=== PATIENT | female | born 1965 | race Asian ===

== ENCOUNTER → 2017-07-14 | Outpatient (CLI) | payer OTHER ==
[~2017-07-14] MED LIST: ALBU90OI; ALPR.5; AMIT25 PO; AMIT50 PO; BIOTIN1 MG PO; BUPRENORPHINE HC2 MG PO; BUPRENORPHINE HC2 MG SL; CLON.5 PO; CODACE30 PO; Cipro500 MG PO; DRON2.5; FLUO20; FOLI1 PO; Glimepiride4 MG; HYDACE10B PO; HYDMOR4 PO; IBUP600 PO; LISI5 PO; LORA1 PO; LOVA20 PO; Lisinopril2.5 MG; MAGCHL64ER PO; MELO7.5 PO; META800 PO; METF500 PO; METF500C; METF500C PO; MULVITA; NAPR500 PO; NITR100CA PO; Norco 10-325 T1 EACH PO; OMEP20ER PO; ONDA4 PO; ONDA4ODT MM; ONDA4ODT PO; OTREXUP 1010 MG/0.4 IM; OXYC10TA19; One Daily1 EAC3 PO; PANT20 PO; PROC5 PO; PROM25 PO; PROP10; Pantoprazole So40 MG; Prozac20 MG; Pyridium200 MG PO; RXCODACET PO; RXHYDMOR2 PO; RXOXYACE PO; TURMERIC500 MG PO; Ultram50 MG PO; Zofran Odt4 MG SL
== END | disposition home or self-care (01) ==
LOC: LAB SHORT 08:43 → LAB EV 08:43
DX: N39.0 Urinary tract infection, site not specified (principal)
CPT/HCPCS: 87077; 87086; 87186

== ENCOUNTER → 2017-09-04 | Outpatient (CLI) | payer OTHER | END | disposition home or self-care (01) | LOC: LAB EV 11:02 → LAB SHORT 11:02 | DX: N39.0 Urinary tract infection, site not specified (principal) | CPT/HCPCS: 87086 ==

== ENCOUNTER → 2017-11-18 | Outpatient (CLI) | payer OTHER | END | disposition home or self-care (01) | LOC: LAB EV 10:47 → LAB SHORT 10:47 | DX: N39.0 Urinary tract infection, site not specified (principal) | CPT/HCPCS: 87086 ==

== ENCOUNTER 2018-08-25 11:57 | Day surgery (SDC) | payer OTHER ==
[~2018-08-25] VITALS: Ht 152.4 cm; Wt 79.7 kg
[~2018-08-25 11:57] MED LIST changes: +ATOR20 PO; +Cranberry425 MG PO; +FOLIC ACID0.8 MG PO; +GAVILAX17 GM PO; +INSULANPEN SC; +MEGA BIOTIN10000 MCG PO; +MULTI FOR HER1 EAC1 PO; +Magnesium250 MG PO; +Metformin HCl1000 MG PO; +Methotrexa25 MG/1 ML IM; +PANT40 PO; +Phenergan25 M1 PO; +Prinivil10 MG PO; +Prozac40 MG PO; +SUBOXONE 12 MG1 EACH; +TRULICITY0.75 MG/0. SC; +Zofran4 MG PO
--- NOTE | 2018-08-25 12:58 | NUR ---
08/25/18 1258 CLEOPATRA KUNZ 1 IV ATTEMPT VEIN ROLL BY CALEB 2 IV ATTEMPT IN R ANTE BY RN
== END 2018-08-25 14:13 | disposition home or self-care (01) ==
LOC: ORSCSDS 11:57
PROVIDERS: Internal Medicine Gastroenterology
PROC: 0DBE8ZX Excision of Large Intestine, Via Natural or Artificial Opening Endoscopic, Diagnostic (ICD-10-PCS; principal; 2018-08-25 13:15)
DX: R19.4 Change in bowel habit (principal); K52.9 Noninfective gastroenteritis and colitis, unspecified; R10.9 Unspecified abdominal pain; I10 Essential (primary) hypertension; E11.40 Type 2 diabetes mellitus with diabetic neuropathy, unspecified; Z79.4 Long term (current) use of insulin; Z79.899 Other long term (current) drug therapy
CPT/HCPCS: 82947; 88305; J2250; J2704; J7120

== ENCOUNTER → 2018-09-22 | Outpatient (CLI) | payer OTHER ==
[~2018-09-22] MED LIST changes: +Percocet 5-3251 EACH PO
[2018-09-22 15:23] LABS: Adenovirus F 40/41 Not Detected (NOT DETECT); Astrovirus Not Detected (NOT DETECT); Campylobacter Sp Not Detected (NOT DETECT); Cryptosporidium Not Detected (NOT DETECT); Cyclospora Cayetanensis Not Detected (NOT DETECT); E. Coli O157 Not Detected (NOT DETECT); Entamoeba Histolytica Not Detected (NOT DETECT); Enteroaggregative E. coli-EAEC Not Detected (NOT DETECT); Enteropathogenic E. coli-EPEC Not Detected (NOT DETECT); Enterotoxigenic E. coli-ETEC Not Detected (NOT DETECT); Giardia Lamblia Not Detected (NOT DETECT); Norovirus GI/GII Not Detected (NOT DETECT); Plesiomonas Shigelloides Not Detected (NOT DETECT); Rotavirus A Not Detected (NOT DETECT); Salmonella Sp Not Detected (NOT DETECT); Sapovirus Not Detected (NOT DETECT); Shiga Toxin-prod E. coli-STEC Not Detected (NOT DETECT); Shigella/Enteroin E. coli-EIEC Not Detected (NOT DETECT); Vibrio Cholerae Not Detected (NOT DETECT); Vibrio Sp Not Detected (NOT DETECT); Yersinia Enterocolitica Not Detected (NOT DETECT)
== END | disposition home or self-care (01) ==
LOC: LAB SHORT 05:00 → LAB 05:00 → LAB FUT 09-21 15:45
PROVIDERS: Internal Medicine Gastroenterology
DX: K52.9 Noninfective gastroenteritis and colitis, unspecified (principal); R11.2 Nausea with vomiting, unspecified
CPT/HCPCS: 87507

== ENCOUNTER 2018-10-17 18:19 | Emergency (ER) | payer OTHER ==
[~2018-10-17] VITALS: Ht 152.4 cm; Wt 72.6 kg
[~2018-10-17 18:19] MED LIST changes: -Percocet 5-3251 EACH PO
== END 2018-10-17 20:25 | disposition home or self-care (01) ==
LOC: ER 18:19
DX: S20.211A Contusion of right front wall of thorax, initial encounter (principal); F41.9 Anxiety disorder, unspecified; E11.9 Type 2 diabetes mellitus without complications; Z88.1 Allergy status to other antibiotic agents; Z88.2 Allergy status to sulfonamides; Z88.8 Allergy status to other drugs, medicaments and biological substances; Z79.899 Other long term (current) drug therapy; Z79.4 Long term (current) use of insulin; W18.2XXA Fall in (into) shower or empty bathtub, initial encounter
CPT/HCPCS: 71101; 99283-25; A9270

== ENCOUNTER 2018-10-19 08:56 | Emergency (ER) | payer OTHER ==
[~2018-10-19] VITALS: Ht 152.4 cm; Wt 72.6 kg
[2018-10-19 11:26] LABS: Source, Urine Clean Catch
[2018-10-19 11:29] LABS: BASOPHILS ABSOLUTE AUTO 0.03 K/mm3 (0.00-0.23); BASOPHILS PERCENT AUTO 0 % (0-2); EOSINOPHILS ABSOLUTE AUTO 0.12 K/mm3 (0.00-0.68); EOSINOPHILS PERCENT AUTO 1 % (0-6); Hematocrit 43.6 % (33.0-51.0); Hemoglobin 13.9 g/dL (11.5-16.0); IMMATURE GRAN ABSOLUTE AUTO 0.02 K/mm3 (0.00-0.10); IMMATURE GRAN PERCENT AUTO 0 % (0-1); LYMPHOCYTES PERCENT AUTO 13 % (21-46); MONOCYTES ABSOLUTE AUTO 0.56 K/mm3 (0.16-1.47); MONOCYTES PERCENT AUTO 6 % (4-13); Mean Corpuscular HGB 30.3 pg (26.0-34.0); Mean Corpuscular HGB Conc 31.9 g/dL (31.5-36.5); Mean Corpuscular Volume 95 fL (80-100); Mean Platelet Volume 9.1 fL (9.1-12.4); NEUTROPHILS ABSOLUTE AUTO 7.22 K/mm3 (1.96-9.15); NEUTROPHILS PERCENT AUTO 79 % (41-73); Platelet Count 237 K/mm3 (150-400); RDW Coefficient Variation 13.2 % (11.7-14.2); RDW Standard Deviation 46.3 fL (35.1-46.3); Red Blood Cell Count 4.58 M/mm3 (3.80-5.20); White Blood Cell Count 9.15 K/mm3 (4.00-11.30)
[2018-10-19 11:32] LABS: Appearance, Urine Clear (Clear); Bilirubin, Urine Neg (Neg); Blood, Urine Neg (Neg); Color, Urine Yellow (P-Yellow); Glucose Qualitative, Urine Neg (Neg); Ketones, Urine Neg (Neg); Leukocyte Esterase, Urine 1+ (Neg); Nitrite, Urine Neg (Neg); Protein, Urine Neg (Neg); Urobilinogen, Urine NORM (Normal)
[2018-10-19 11:43] LABS: Alanine Aminotransfer (ALT/SGP 39 U/L (12-78); Alk Phos 113 U/L (50-136); Anion Gap 4 mmol/L (6-16); Aspartate Aminotrans (AST/SGOT 42 U/L (12-37); Bilirubin, Total 0.5 mg/dL (0.1-1.0); Blood Urea Nitrogen 10 mg/dL (8-24); Bun/Creatinine Ratio 14.7 (12.0-20.0); CO2, Blood 30 mmol/L (21-32); Calcium, Blood 9.2 mg/dL (8.5-10.1); Chloride, Blood 103 mmol/L (98-108); Creatinine, Blood 0.68 mg/dL (0.40-1.00); Glomerular Filtration Rate >60 (60-); Glucose, Blood 123 mg/dL (70-99); Potassium, Blood 4.4 mmol/L (3.5-5.5); Sodium, Blood 137 mmol/L (136-145)
[2018-10-19 11:46] LABS: Bacteria Few /hpf; Red Blood Cells, Urine Not Seen /hpf (0-2); White Blood Cells, Urine 0-2 /hpf (0-5)
[2018-10-19 11:47] LABS: Mucus Light (0-Heavy); Squamous Epithelial Cells Few /hpf (Few)
[2018-10-19] MEDS ORDERED: Percocet 5-3251 EACH PO (12:19)
== END 2018-10-19 12:39 | disposition home or self-care (01) ==
LOC: ER 08:56
PROVIDERS: Physician Assistant
DX: S20.211A Contusion of right front wall of thorax, initial encounter (principal); N20.0 Calculus of kidney; W18.2XXA Fall in (into) shower or empty bathtub, initial encounter; Z88.8 Allergy status to other drugs, medicaments and biological substances; Z88.2 Allergy status to sulfonamides; Z88.1 Allergy status to other antibiotic agents; Z79.899 Other long term (current) drug therapy; Z79.4 Long term (current) use of insulin; E11.9 Type 2 diabetes mellitus without complications; F41.9 Anxiety disorder, unspecified
CPT/HCPCS: 36415; 71046; 74177; 80053; 81001; 82947; 84484; 85025; 87086; 93005; 93010; 96374-59; 96375; 99284-25; J1170; J2405; J3010; Q9967

== ENCOUNTER 2019-09-09 08:32 | Day surgery (SDC) | payer OTHER ==
[~2019-09-09] VITALS: Ht 152.4 cm; Wt 77.1 kg
[~2019-09-09 08:32] MED LIST changes: +Percocet 5-3251 EACH PO
[2019-09-09] MEDS ORDERED: CYCL10 PO (09:25)
[2019-09-09] MEDS ORDERED: DICLOFENAC SOD100 G1 (09:26)
[2019-09-09] MEDS ORDERED: TRAZ50 PO (09:27)
[2019-09-09] MEDS ORDERED: BUPROPION XL150 M1 PO (09:28)
[2019-09-09] MEDS ORDERED: Lamotrigine25 MG (09:29)
--- NOTE | 2019-09-09 10:39 | NUR ---
09/09/19 1039 Michelle Coon PT UNAROUSABLE TO VOICE, TOUCH AT THIS TIME. VSS. WILL CONTINUE TO MONITER.
== END 2019-09-09 11:58 | disposition home or self-care (01) ==
LOC: ORSCSDS 08:32
PROVIDERS: Podiatrist Foot & Ankle Surgery
PROC: 0SGP04Z Fusion of Right Toe Phalangeal Joint with Internal Fixation Device, Open Approach (ICD-10-PCS; principal; 2019-09-09 10:30)
PROC: 0JCQ0ZZ Extirpation of Matter from Right Foot Subcutaneous Tissue and Fascia, Open Approach (ICD-10-PCS; principal; 2019-09-09 10:30)
DX: M20.41 Other hammer toe(s) (acquired), right foot (principal); S90.851A Superficial foreign body, right foot, initial encounter; I10 Essential (primary) hypertension; E78.5 Hyperlipidemia, unspecified; Z87.891 Personal history of nicotine dependence; K21.9 Gastro-esophageal reflux disease without esophagitis; K76.0 Fatty (change of) liver, not elsewhere classified; E11.40 Type 2 diabetes mellitus with diabetic neuropathy, unspecified; Z79.4 Long term (current) use of insulin; Z79.84 Long term (current) use of oral hypoglycemic drugs; Z79.899 Other long term (current) drug therapy
CPT/HCPCS: 82947; C1713; J0171; J1100; J2250; J2370; J2405; J2704; J3010; J7040; J7120

== ENCOUNTER → 2019-10-16 | Outpatient (CLI) | payer OTHER ==
[~2019-10-16] MED LIST changes: +BUPROPION XL150 M1 PO; +CYCL10 PO; +DICLOFENAC SOD100 G1; +Lamotrigine25 MG; +TRAZ50 PO
== END ==
LOC: LAB EV 12:09 → LAB SHORT 12:09
DX: N39.0 Urinary tract infection, site not specified (principal)
CPT/HCPCS: 87077; 87086; 87186

== ENCOUNTER 2020-01-04 15:58 | Emergency (ER) | payer OTHER ==
[~2020-01-04] VITALS: Ht 152.4 cm; Wt 71.7 kg
[2020-01-04 16:54] LABS: BASOPHILS ABSOLUTE AUTO 0.03 K/mm3 (0.00-0.23); BASOPHILS PERCENT AUTO 0 % (0-2); EOSINOPHILS ABSOLUTE AUTO 0.24 K/mm3 (0.00-0.68); EOSINOPHILS PERCENT AUTO 3 % (0-6); Hematocrit 44.7 % (33.0-51.0); Hemoglobin 14.5 g/dL (11.5-16.0); IMMATURE GRAN ABSOLUTE AUTO 0.02 K/mm3 (0.00-0.10); IMMATURE GRAN PERCENT AUTO 0 % (0-1); LYMPHOCYTES ABSOLUTE AUTO 2.04 K/mm3 (0.84-5.20); LYMPHOCYTES PERCENT AUTO 22 % (21-46); MONOCYTES ABSOLUTE AUTO 0.57 K/mm3 (0.16-1.47); MONOCYTES PERCENT AUTO 6 % (4-13); Mean Corpuscular HGB 28.7 pg (26.0-34.0); Mean Corpuscular HGB Conc 32.4 g/dL (31.5-36.5); Mean Corpuscular Volume 88 fL (80-100); Mean Platelet Volume 8.9 fL (9.1-12.4); NEUTROPHILS PERCENT AUTO 68 % (41-73); Platelet Count 274 K/mm3 (150-400); RDW Coefficient Variation 12.6 % (11.7-14.2); RDW Standard Deviation 40.9 fL (35.1-46.3); Red Blood Cell Count 5.06 M/mm3 (3.80-5.20)
[2020-01-04 17:16] LABS: Alanine Aminotransfer (ALT/SGP 24 U/L (12-78); Albumin, Blood 4.4 g/dL (3.4-5.0); Alk Phos 116 U/L (50-136); Anion Gap 4 mmol/L (6-16); Aspartate Aminotrans (AST/SGOT 17 U/L (12-37); Bilirubin, Total 0.5 mg/dL (0.1-1.0); Blood Urea Nitrogen 12 mg/dL (8-24); Bun/Creatinine Ratio 18.5 (12.0-20.0); CO2, Blood 31 mmol/L (21-32); Calcium, Blood 10.4 mg/dL (8.5-10.1); Chloride, Blood 105 mmol/L (98-108); Creatinine, Blood 0.65 mg/dL (0.40-1.00); Globulin, Blood 4.3 g/dL (2.2-4.0); Glomerular Filtration Rate >60 (60-); Glucose, Blood 101 mg/dL (70-99); Potassium, Blood 4.1 mmol/L (3.5-5.5); Sodium, Blood 140 mmol/L (136-145); Total Protein, Blood 8.7 g/dL (6.4-8.2)
[2020-01-04 21:42] LABS: Source, Urine Clean Catch
[2020-01-04 21:44] LABS: Bilirubin, Urine Neg (Neg); Blood, Urine Neg (Neg); Glucose Qualitative, Urine Neg (Neg); Ketones, Urine Neg (Neg); Leukocyte Esterase, Urine 2+ (Neg); Nitrite, Urine Neg (Neg); Protein, Urine Neg (Neg); Urobilinogen, Urine 1+ (Normal)
[2020-01-04 21:53] LABS: Appearance, Urine Clear (Clear); Bacteria Few /hpf; Color, Urine Yellow (P-Yellow); Red Blood Cells, Urine Not Seen /hpf (0-2); Squamous Epithelial Cells Few /hpf (Few)
== END 2020-01-04 22:56 | disposition home or self-care (01) ==
LOC: ER 15:58
PROVIDERS: Physician Assistant
DX: E11.43 Type 2 diabetes mellitus with diabetic autonomic (poly)neuropathy (principal); K31.84 Gastroparesis; R51.9 Headache, unspecified; K86.1 Other chronic pancreatitis; K74.60 Unspecified cirrhosis of liver; E11.9 Type 2 diabetes mellitus without complications; F41.9 Anxiety disorder, unspecified; Z88.1 Allergy status to other antibiotic agents; Z88.2 Allergy status to sulfonamides; Z79.899 Other long term (current) drug therapy; Z79.4 Long term (current) use of insulin
CPT/HCPCS: 36415; 80053; 81001; 83690; 85025; 87086; 87147; 93005; 93010; 96361; 96374; 96375; 99284-25; J1630; J1885; J2405; J7030

== ENCOUNTER → 2020-12-12 | Outpatient (CLI) | payer OTHER ==
[2020-12-12 08:34] LABS: BASOPHILS ABSOLUTE AUTO 0.04 K/mm3 (0.00-0.23); BASOPHILS PERCENT AUTO 0 % (0-2); EOSINOPHILS ABSOLUTE AUTO 0.11 K/mm3 (0.00-0.68); EOSINOPHILS PERCENT AUTO 1 % (0-6); Hematocrit 41.5 % (33.0-51.0); Hemoglobin 14.3 g/dL (11.5-16.0); IMMATURE GRAN ABSOLUTE AUTO 0.04 K/mm3 (0.00-0.10); IMMATURE GRAN PERCENT AUTO 0 % (0-1); LYMPHOCYTES ABSOLUTE AUTO 1.21 K/mm3 (0.84-5.20); LYMPHOCYTES PERCENT AUTO 13 % (21-46); MONOCYTES ABSOLUTE AUTO 0.39 K/mm3 (0.16-1.47); MONOCYTES PERCENT AUTO 4 % (4-13); Mean Corpuscular HGB Conc 34.5 g/dL (31.5-36.5); Mean Corpuscular Volume 87 fL (80-100); Mean Platelet Volume 9.1 fL (9.1-12.4); NEUTROPHILS ABSOLUTE AUTO 7.56 K/mm3 (1.96-9.15); NEUTROPHILS PERCENT AUTO 81 % (41-73); Platelet Count 245 K/mm3 (150-400); RDW Standard Deviation 40.5 fL (35.1-46.3); Red Blood Cell Count 4.77 M/mm3 (3.80-5.20); White Blood Cell Count 9.35 K/mm3 (4.00-11.30)
[2020-12-12 08:36] LABS: Albumin, Blood 4.4 g/dL (3.4-5.0); Bilirubin, Total 0.4 mg/dL (0.1-1.0); Bun/Creatinine Ratio 8.9 (12.0-20.0); Calcium, Blood 9.6 mg/dL (8.5-10.1); Creatinine, Blood 1.01 mg/dL (0.40-1.00); Globulin, Blood 4.3 g/dL (2.2-4.0); Potassium, Blood 4.9 mmol/L (3.5-5.5); Total Protein, Blood 8.7 g/dL (6.4-8.2)
== END | disposition home or self-care (01) ==
LOC: LAB 08:20 → LAB SHORT 08:20
PROVIDERS: Physician Assistant
DX: R10.9 Unspecified abdominal pain (principal); R82.90 Unspecified abnormal findings in urine
CPT/HCPCS: 80053; 83690; 85025; 87086

== ENCOUNTER 2021-10-31 11:56 | Day surgery (SDC) | payer OTHER ==
[~2021-10-31] VITALS: Ht 152.4 cm; Wt 70.2 kg
[2021-10-31] MEDS ORDERED: Amaryl1 MG PO (12:33)
[2021-10-31] MEDS ORDERED: TIZA4 PO (12:33)
[2021-10-31] MEDS ORDERED: JARDIANCE10 MG PO (12:34)
[2021-10-31] MEDS ORDERED: SERT25 PO (12:34)
--- NOTE | 2021-10-31 12:47 | NUR ---
10/31/21 1247 Rosendo Garcia THREE ATTEMPTS AT IV. FIRST ATTEMPT AT IV BY RN IN RIGHT FOREARM MISSED. SECOND ATTEMPT AT IV BY RN IN RIGHT FOREARM INFILTRATED. THIRD ATTEMPT AT IV BY RN IN LEFT AC SUCCESSFUL.
== END 2021-10-31 14:05 | disposition home or self-care (01) ==
LOC: ORSCSDS 11:56
PROVIDERS: Internal Medicine Gastroenterology
PROC: 0DJ08ZZ Inspection of Upper Intestinal Tract, Via Natural or Artificial Opening Endoscopic (ICD-10-PCS; principal; 2021-10-31 13:15)
DX: K74.60 Unspecified cirrhosis of liver (principal); E11.9 Type 2 diabetes mellitus without complications; E78.5 Hyperlipidemia, unspecified; Z79.84 Long term (current) use of oral hypoglycemic drugs; Z79.899 Other long term (current) drug therapy; Z87.891 Personal history of nicotine dependence
CPT/HCPCS: 82947; J2405; J2704; J7120

== ENCOUNTER → 2022-01-15 | Outpatient (CLI) | payer OTHER ==
[~2022-01-15] MED LIST changes: +Amaryl1 MG PO; +JARDIANCE10 MG PO; +SERT25 PO; +TIZA4 PO
== END ==
LOC: LAB SHORT 10:22 → LAB 10:22
DX: N12 Tubulo-interstitial nephritis, not specified as acute or chronic (principal)
CPT/HCPCS: 87077; 87086; 87186

== ENCOUNTER → 2022-04-23 | Outpatient (CLI) | payer OTHER ==
[2022-04-23 10:40] LABS: BASOPHILS ABSOLUTE AUTO 0.05 K/mm3 (0.00-0.23); BASOPHILS PERCENT AUTO 1 % (0-2); EOSINOPHILS ABSOLUTE AUTO 0.04 K/mm3 (0.00-0.68); EOSINOPHILS PERCENT AUTO 1 % (0-6); Hematocrit 41.5 % (33.0-51.0); Hemoglobin 14.3 g/dL (11.5-16.0); IMMATURE GRAN ABSOLUTE AUTO 0.05 K/mm3 (0.00-0.10); IMMATURE GRAN PERCENT AUTO 1 % (0-1); LYMPHOCYTES ABSOLUTE AUTO 1.67 K/mm3 (0.84-5.20); LYMPHOCYTES PERCENT AUTO 20 % (21-46); MONOCYTES ABSOLUTE AUTO 0.44 K/mm3 (0.16-1.47); MONOCYTES PERCENT AUTO 5 % (4-13); Mean Corpuscular HGB 30.2 pg (26.0-34.0); Mean Corpuscular HGB Conc 34.5 g/dL (31.5-36.5); Mean Corpuscular Volume 88 fL (80-100); Mean Platelet Volume 8.8 fL (9.1-12.4); NEUTROPHILS PERCENT AUTO 73 % (41-73); Platelet Count 313 K/mm3 (150-400); RDW Coefficient Variation 12.5 % (11.7-14.2); RDW Standard Deviation 40.1 fL (35.1-46.3); Red Blood Cell Count 4.73 M/mm3 (3.80-5.20); White Blood Cell Count 8.25 K/mm3 (4.00-11.30)
[2022-04-23 11:06] LABS: Albumin, Blood 4.6 g/dL (3.4-5.0); Albumin/Globulin Ratio 1.1 (0.8-1.8); Bilirubin, Total 0.3 mg/dL (0.1-1.0); Calcium, Blood 9.7 mg/dL (8.5-10.1); Creatinine, Blood 0.92 mg/dL (0.40-1.00); Free Thyroxine 0.99 ng/dL (0.70-1.60); Globulin, Blood 4.1 g/dL (2.2-4.0); Potassium, Blood 4.3 mmol/L (3.5-5.5); Thyroid Stimulating Hormone 0.309 uIU/mL (0.360-4.800); Total Protein, Blood 8.7 g/dL (6.4-8.2)
== END | disposition home or self-care (01) ==
LOC: LAB SHORT 10:33 → LAB 10:33
PROVIDERS: Chiropractor
DX: R10.13 Epigastric pain (principal); E04.9 Nontoxic goiter, unspecified
CPT/HCPCS: 80053; 83690; 84439; 84443; 84484; 85025

== ENCOUNTER → 2022-10-07 | Outpatient (CLI) | payer OTHER ==
[2022-10-07 15:12] LABS: BASOPHILS ABSOLUTE AUTO 0.03 K/mm3 (0.00-0.23); BASOPHILS PERCENT AUTO 0 % (0-2); EOSINOPHILS ABSOLUTE AUTO 0.06 K/mm3 (0.00-0.68); EOSINOPHILS PERCENT AUTO 1 % (0-6); Hematocrit 39.1 % (33.0-51.0); Hemoglobin 13.7 g/dL (11.5-16.0); IMMATURE GRAN ABSOLUTE AUTO 0.04 K/mm3 (0.00-0.10); IMMATURE GRAN PERCENT AUTO 1 % (0-1); LYMPHOCYTES PERCENT AUTO 26 % (21-46); MONOCYTES ABSOLUTE AUTO 0.54 K/mm3 (0.16-1.47); MONOCYTES PERCENT AUTO 7 % (4-13); Mean Corpuscular HGB 29.5 pg (26.0-34.0); Mean Corpuscular Volume 84 fL (80-100); Mean Platelet Volume 8.7 fL (9.1-12.4); NEUTROPHILS ABSOLUTE AUTO 5.15 K/mm3 (1.96-9.15); NEUTROPHILS PERCENT AUTO 66 % (41-73); Platelet Count 271 K/mm3 (150-400); RDW Coefficient Variation 12.7 % (11.7-14.2); RDW Standard Deviation 38.6 fL (35.1-46.3); Red Blood Cell Count 4.65 M/mm3 (3.80-5.20); White Blood Cell Count 7.82 K/mm3 (4.00-11.30)
[2022-10-07 15:26] LABS: Albumin, Blood 4.3 g/dL (3.4-5.0); Albumin/Globulin Ratio 1.1 (0.8-1.8); Bilirubin, Total 0.3 mg/dL (0.1-1.0); Bun/Creatinine Ratio 14.1 (12.0-20.0); Creatinine, Blood 0.78 mg/dL (0.40-1.00); Globulin, Blood 3.9 g/dL (2.2-4.0); Potassium, Blood 3.8 mmol/L (3.5-5.5); Total Protein, Blood 8.2 g/dL (6.4-8.2)
[2022-10-07 15:31] LABS: Calcium, Blood 9.4 mg/dL (8.5-10.1)
== END | disposition home or self-care (01) ==
LOC: LAB 15:07 → LAB SHORT 15:07
PROVIDERS: Family Medicine
DX: R10.9 Unspecified abdominal pain (principal)
CPT/HCPCS: 80053; 83690; 85025

== ENCOUNTER 2022-10-21 09:02 | Day surgery (SDC) | payer OTHER ==
[~2022-10-21] VITALS: Ht 152.4 cm; Wt 70.4 kg
[2022-10-21] MEDS ORDERED: METO25ER (09:23)
[2022-10-21 11:45] VITALS: BP 112/65
--- NOTE | 2022-10-21 11:48 | NUR ---
10/21/22 1148 Emily Orosco IV DC'D FROM [facility]. CATHETER WNL. PATIENT DISCHARGED HOME
== END 2022-10-21 11:35 | disposition home or self-care (01) ==
LOC: ORSCSDS 09:02
PROVIDERS: Internal Medicine Gastroenterology
PROC: 0DB78ZX Excision of Stomach, Pylorus, Via Natural or Artificial Opening Endoscopic, Diagnostic (ICD-10-PCS; principal; 2022-10-21 10:30)
PROC: 0DBL8ZX Excision of Transverse Colon, Via Natural or Artificial Opening Endoscopic, Diagnostic (ICD-10-PCS; principal; 2022-10-21 10:30)
DX: K74.60 Unspecified cirrhosis of liver (principal); Z12.11 Encounter for screening for malignant neoplasm of colon; D12.3 Benign neoplasm of transverse colon; E11.9 Type 2 diabetes mellitus without complications; Z87.891 Personal history of nicotine dependence; K31.84 Gastroparesis; K75.81 Nonalcoholic steatohepatitis (NASH); Z79.84 Long term (current) use of oral hypoglycemic drugs; Z79.899 Other long term (current) drug therapy
CPT/HCPCS: 82947; 88305; 88342; J2704; J7120

== ENCOUNTER 2024-12-23 07:22 | Day surgery (SDC) | payer OTHER ==
[~2024-12-23] VITALS: Ht 152.4 cm; Wt 70.1 kg
[~2024-12-23 07:22] MED LIST changes: +METO25ER
[2024-12-23] MEDS ORDERED: ATOR40TA (07:44)
[2024-12-23] MEDS ORDERED: JARDIANCE10 MG (07:45)
[2024-12-23] MEDS ORDERED: INSULANI (07:45)
[2024-12-23] MEDS ORDERED: HYDSUL200 (07:45)
[2024-12-23] MEDS ORDERED: NOVOLOG FL100 UNIT/2 (07:46)
[2024-12-23] MEDS ORDERED: CREON DR 36,001 EACH (07:46)
[2024-12-23] MEDS ORDERED: LOSA25 (07:46)
[2024-12-23 09:34] VITALS: BP 109/48
--- NOTE | 2024-12-23 09:38 | NUR ---
12/23/24 0938 Evelia Bonds PT REPORTS MID ABD PAIN/RUQ PAIN AT 7/10. SHE REPORTS THAT IT IS CHRONIC PAIN THAT SHE HAS EVERY DAY RELATED TO HER LIVER AND PANCREAS. PT CAME IN WITH PAIN RATED AT 5/10 TODAY. AT HOME PT REPORTS SHE TAKES PAIN MEDICATION TO CONTROL THIS PAIN. SHE PLANS TO TAKE HER PAIN MEDICATION WHEN SHE GETS HOME. ALSO C/O MILD NAUSEA THAT SHE ALSO REPORTS IS CHRONIC FOR HER. SHE STATES SHE TAKES NAUSEA MEDICATION DAILY TO CONTROL THIS. SHE IS PLANNING TO TAKE THIS WHEN SHE GETS HOME WELL. ABDOMEN WAS SOFT TO PALPATION. VSS.
== END 2024-12-23 09:27 | disposition home or self-care (01) ==
LOC: ORSCSDS 07:22
PROVIDERS: Internal Medicine Gastroenterology
PROC: 0DB78ZX Excision of Stomach, Pylorus, Via Natural or Artificial Opening Endoscopic, Diagnostic (ICD-10-PCS; principal; 2024-12-23 08:45)
DX: K21.9 Gastro-esophageal reflux disease without esophagitis (principal); Z13.810 Encounter for screening for upper gastrointestinal disorder; R10.13 Epigastric pain; K74.60 Unspecified cirrhosis of liver; K31.84 Gastroparesis; K86.1 Other chronic pancreatitis; Z80.8 Family history of malignant neoplasm of other organs or systems; K75.81 Nonalcoholic steatohepatitis (NASH); Z87.891 Personal history of nicotine dependence; E11.9 Type 2 diabetes mellitus without complications; Z79.4 Long term (current) use of insulin; Z79.899 Other long term (current) drug therapy
CPT/HCPCS: 82947; 88305; 88342; J2704; J7120